=== PATIENT | male | born 1950 | race Caucasian/White ===

== ENCOUNTER 2018-03-29 11:04 | Day surgery (SDC) | payer MEDICARE ==
[2018-03-29] MEDS: NS 1,000 ML IV (11:15)
[2018-03-29] MEDS ORDERED: PROPOFOL 200 MG/20 ML VIAL As Ordered ×2 (12:23)
[2018-03-29] MEDS ORDERED: LIDOCAINE 2% INJ 100 MG/5 ML SDV (FOR ANES.) As Ordered (12:24)
== END 2018-03-29 13:40 | disposition home or self-care (01) ==
LOC: M OPP 11:04
DX: Z12.11 Encounter for screening for malignant neoplasm of colon (principal); K64.0 First degree hemorrhoids; K57.30 Diverticulosis of large intestine without perforation or abscess without bleeding; Z86.010 Personal history of colon polyps; K21.9 Gastro-esophageal reflux disease without esophagitis; I10 Essential (primary) hypertension; E78.5 Hyperlipidemia, unspecified; Z79.82 Long term (current) use of aspirin; Z79.899 Other long term (current) drug therapy; Z86.73 Personal history of transient ischemic attack (TIA), and cerebral infarction without residual deficits; Z87.891 Personal history of nicotine dependence
CPT/HCPCS: G0105

== ENCOUNTER 2023-11-04 10:14 | Day surgery (SDC) | payer MEDICARE ==
[~2023-11-04] VITALS: Ht 175.3 cm; Wt 80.3 kg
[~2023-11-04 10:14] MED LIST: ASPI81TA26 PO; ATOR1TAB19 PO; COQ-100C2 PO; COQ150CH PO; ERGO500029 PO; LISI10TA22 PO; NS 1,000 ML IV ONE; OMEP40CA4 PO; OSTETAB2 PO; OSTETAB4 PO; VITA50005 PO
[2023-11-04 12:42] VITALS: TEMP 98.1
[2023-11-04 13:08] VITALS: BP 124/72; O2SAT 94
== END 2023-11-04 13:09 | disposition home or self-care (01) ==
LOC: M OPP 10:14
PROVIDERS: ATTEND Internal Medicine Gastroenterology
DX: Z86.010 Personal history of colon polyps (principal); K64.0 First degree hemorrhoids; K57.30 Diverticulosis of large intestine without perforation or abscess without bleeding; I10 Essential (primary) hypertension; Z86.73 Personal history of transient ischemic attack (TIA), and cerebral infarction without residual deficits; Z79.02 Long term (current) use of antithrombotics/antiplatelets; Z79.82 Long term (current) use of aspirin; Z79.899 Other long term (current) drug therapy

== ENCOUNTER → 2025-02-17 | Outpatient (CLI) | payer MEDICARE ==
[~2025-02-17] MED LIST changes: -NS 1,000 ML IV ONE
== END ==
LOC: M RAD 09:51
PROVIDERS: ATTEND Nurse Practitioner Family
DX: I65.23 Occlusion and stenosis of bilateral carotid arteries (principal)